=== PATIENT | male | born 1950 | race Two or more races ===

== ENCOUNTER 2019-06-11 23:11 | Inpatient (IN) | payer MEDICAID, OTHER ==
[~2019-06-11] VITALS: Ht 177.8 cm; Wt 69.4 kg
--- NOTE | 2019-06-11 23:20 | NUR ---
PT [id number] FROM [facility] FOR G-TUBE REPLACEMENT, PER EMS G-TUBE WAS PULLED OUT THIS MORNING. PT VENT/TRACH SETTING SIMV/CPAP RATE 10, TIDAL VOLUME 600. PT AXO1. PT PUT ON THE CAR PARKER AND PULSE OX.
--- NOTE | 2019-06-11 23:35 | NUR ---
ER AT BEDSIDE, UNABLE TO REPLACE G-TUBE.
--- NOTE | 2019-06-11 23:39 | NUR ---
PT REC'D TRACHED ON [facility] VENT ON NOTED SETTINGS GIVEN FROM TRANSPORT RT. NO RESP DISTRESS OR SOB NOTED. TRACH IS PATENT AND SECURED. SX'D FOR THICK MOD AMT OF PALE YELLOW SECRETIONS. ALARMS ARE SET AND AUDIBLE. VENT PLUGGED INTO RED OUTLET. AMBU BAG BEDSIDE. WILL CONTINUE TO MONITOR. Addendum: 06/11/19 at 2342 by DWAYNE CAMPOS RT Amended: Links added.
--- NOTE | 2019-06-11 23:45 | NUR ---
SUPERVISOR TELEPHONE INFORMATION AT BEDSIDE. LABS DRAWN THROUGH 18G RAC. SENT TO LAB.
[2019-06-11 23:49] LABS: BASOPHILS % (AUTO) 0.3 % (0.0-2.0); EOSINOPHILS % (AUTO) 1.8 % (0.0-6.0); HEMATOCRIT 25 % (39-51); HEMOGLOBIN 8.3 g/dL (13.5-17.5); LYMPHOCYTES # (AUTO) 1.3 /CMM (0.8-4.8); LYMPHOCYTES % (AUTO) 25.3 % (20.0-44.0); MEAN CORPUSCULAR HGB CONC 34 g/dl (31.0-36.0); MEAN CORPUSCULAR VOLUME 92 fL (80-96); MONOCYTES # (AUTO) 0.7 /CMM (0.1-1.30); MONOCYTES % (AUTO) 12.4 % (2.0-12.0); NEUTROPHILS # (AUTO) 3.2 /CMM (1.8-8.9); NEUTROPHILS % (AUTO) 60.2 % (43.0-81.0); PLATELET COUNT (AUTO) 167 /CMM (150-450); RED BLOOD CELL COUNT(AUTO) 2.69 MIL/uL (4.5-6.0); WHITE BLOOD COUNT (AUTO) 5.3 K/uL (4.3-11.0)
--- NOTE | 2019-06-11 23:55 | NUR ---
XRAY AT BEDSIDE.
[2019-06-11 23:59] LABS: CALCIUM, SERUM 9.5 mg/dL (8.5-10.1); CREATININE 0.5 mg/dL (0.6-1.3); POTASSIUM 3.2 mmol/L (3.5-5.1)
[2019-06-12 00:05] LABS: ALBUMIN 2.2 g/dL (3.4-5.0); BILIRUBIN,DIRECT 0.2 mg/dL (0.0-0.2); BILIRUBIN,TOTAL 0.5 mg/dL (0.2-1.0); TOTAL PROTEIN, SERUM 8.4 g/dL (6.4-8.2)
[2019-06-12] MEDS ORDERED: IV PREMIX D5 1/2NS + KCL 1,000 ML IV ONE ×2 (00:09→00:21)
[2019-06-12 01:00] LABS: OCCULT BLOOD STOOL NEGATIVE (NEGATIVE)
--- NOTE | 2019-06-12 02:18 | NUR ---
REPORT GIVEN TO EMILY VIDALES FOR SHARDA.
[2019-06-12] MEDS ORDERED: Z GUARD REMEDY 2 OZ OINT TP PRN (02:30)
[2019-06-12] MEDS ORDERED: ONDANSETRON HCL/PF 4 MG/2 ML VIAL IVP PRN (02:30)
[2019-06-12] MEDS ORDERED: ACETAMINOPHEN 650 MG/SUPP.RECT RC PRN (02:30)
--- NOTE | 2019-06-12 02:35 | NUR ---
TECHNICAL MARKETING ENGINEER NOTE PT ARRIVED TO UNIT VIA GURNEY ACCOMPANIED BY ER STAFF AND RT. PT IN STABLE CONDITION. SPONTANEOUSLY OPENS EYES. CURRENTLY ON VENT, TOLERATING SETTINGS WELL. SKIN ASSESSED, WITH PHOTOS TAKEN IN CHART. NO BELONGINGS NOTED. IV IN R AC, IN PLACE WITH IVF INFUSING. ALL CURRENT NEEDS ATTENDED TO. BED LOW, LOCKED, UPPER RAILS UP, AND CALL LIGHT WITHIN REACH. NEW ORDERS RECEIVED FROM LADARIUS MARINO. WILL CONT. TO MONITOR.
[2019-06-12 02:45] VITALS: BP 134/82
[2019-06-12 04:00] VITALS: BP 130/81
[2019-06-12] MEDS ORDERED: ALBU2.5V38 NEB (04:01)
[2019-06-12] MEDS ORDERED: THIA500T GT (04:01)
[2019-06-12] MEDS ORDERED: MAGN400O6 GT (04:01)
[2019-06-12] MEDS ORDERED: MULT9LIQ GT (04:01)
[2019-06-12] MEDS ORDERED: ZINC220T GT (04:01)
[2019-06-12] MEDS ORDERED: VALP250S4 GT (04:01)
[2019-06-12] MEDS ORDERED: FOLI1TAB16 GT (04:01)
[2019-06-12] MEDS ORDERED: IPRA0.2S9 HHN (04:01)
[2019-06-12] MEDS ORDERED: VIT500LI GT (04:01)
[2019-06-12] MEDS ORDERED: BISA10SU61 RC (04:01)
[2019-06-12] MEDS ORDERED: LOSA50TA39 GT (04:01)
[2019-06-12] MEDS ORDERED: TRAM50TA2 GT (04:01)
[2019-06-12] MEDS ORDERED: METO25TA6 GT (04:01)
[2019-06-12] MEDS ORDERED: LACT10SO GT (04:01)
[2019-06-12] MEDS ORDERED: FAMO20TA8 GT (04:01)
[2019-06-12] MEDS ORDERED: CLON0.1T GT (04:01)
[2019-06-12] MEDS ORDERED: DOCU50LI GT (04:01)
[2019-06-12] MEDS: IV D5/0.45 NACL 1,000 ML IV PRN (04:07)
[2019-06-12] MEDS ORDERED: ALBU2.5V13 NEB (04:12)
--- NOTE | 2019-06-12 06:36 | NUR ---
POTATO CHIP PACKAGING MACHINE OPERATOR NOTE PT IN STABLE CONDITION. SPONTANEOUSLY OPENS EYES. CURRENTLY ON VENT, TOLERATING SETTINGS WELL. IV IN R AC, IN PLACE WITH IVF INFUSING. ALL CURRENT NEEDS ATTENDED TO. BED LOW, LOCKED, UPPER RAILS UP, PT REPOSITIONED PER UNIT PROTOCOL, SUCTIONED NEEDED, AND CALL LIGHT WITHIN REACH WILL CONT TO MONITOR AND ENDORSE TO NEXT SHIFT FOR SHARDA.
[2019-06-12 06:46] LABS: CALCIUM, SERUM 9.5 mg/dL (8.5-10.1); CREATININE 0.4 mg/dL (0.6-1.3); MAGNESIUM 1.4 mg/dL (1.8-2.4); PHOSPHORUS 4.6 mg/dL (2.5-4.9)
[2019-06-12 06:54] LABS: BASOPHILS % (AUTO) 0.6 % (0.0-2.0); EOSINOPHILS % (AUTO) 1.1 % (0.0-6.0); HEMATOCRIT 24 % (39-51); HEMOGLOBIN 7.9 g/dL (13.5-17.5); LYMPHOCYTES % (AUTO) 22.5 % (20.0-44.0); MEAN CORPUSCULAR HGB CONC 33 g/dl (31.0-36.0); MEAN CORPUSCULAR VOLUME 92 fL (80-96); MONOCYTES # (AUTO) 0.6 /CMM (0.1-1.30); MONOCYTES % (AUTO) 13.2 % (2.0-12.0); NEUTROPHILS # (AUTO) 2.7 /CMM (1.8-8.9); NEUTROPHILS % (AUTO) 62.6 % (43.0-81.0); PLATELET COUNT (AUTO) 160 /CMM (150-450); RED BLOOD CELL COUNT(AUTO) 2.58 MIL/uL (4.5-6.0); WHITE BLOOD COUNT (AUTO) 4.3 K/uL (4.3-11.0)
--- NOTE | 2019-06-12 07:30 | NUR ---
METAL CABINET FINISHER NOTE RECEIVED PT IN BED. A/O X1. PATIENT ON A VENTILATOR PULSE OX READING 95% . EXTERNAL TELE MONITOR READING SINUS TACH 106 . NO DISTRESS AT THIS TIME. IV ACCESS RIGHT AC GAUGE 18 RUNNING D5 1/2 NS @75 ML/HR. BED IS LOW AND LOCKED. CALL LIGHT WITHIN REACH. G-TUBE SITE COVERED WITH DRY DRESSING AND NO DRAINAGE AND NO APPARENT SIGNS AND SYMPTOMS OF INFECTION. WILL CONTINUE TO MONITOR.
[2019-06-12 08:00] VITALS: BP 129/74
[2019-06-12] MEDS ORDERED: POTASSIUM CHLORIDE 20 MEQ TAB.PRT.SR PO SCH (10:00)
--- NOTE | 2019-06-12 10:08 | NUR ---
RT NOTE RECEIVED PT MECHANICALLY VENTILATED VIA CUFFED TRACHEOSTOMY TUBE. CUFF INFLATED. TRACH TUBE MIDLINE AND SECURE. VENTILATOR SETTINGS PRESCRIBED. ALARMS SET PER PROTOCOL AND AUDIBLE. VENT PLUGGED IN TO RED OUTLET. AMBU BAG AT BED SIDE. NO DISTRESS NOTED. Addendum: 06/12/19 at 1008 by JW BAUM RT Amended: Links added.
[2019-06-12] MEDS: Magnesium 1GM/D5W 100ML PREMIX 100 ML IV SCH ×4 (10:25→16:11)
[2019-06-12] MEDS ORDERED: CLONIDINE HCL 0.1 MG TABLET GT PRN (10:30)
[2019-06-12] MEDS ORDERED: BISACODYL SUPP (10 MG) 10 MG/SUPP.RECT SUPP.RECT RC SCH (10:30)
[2019-06-12] MEDS ORDERED: ALBUTEROL FS 2.5 MG/0.5 ML VIAL.NEB NEB PRN (10:30)
[2019-06-12] MEDS: THIAMINE HCL 100 MG TABLET PO SCH (11:00)
[2019-06-12] MEDS: POTASSIUM CL. PREMIX PERIPHER. 50 ML IV SCH ×6 (11:50→22:09)
[2019-06-12 12:00] VITALS: BP 109/67
[2019-06-12] MEDS ORDERED: VALPROIC ACID 250 MG/5 ML UDC GT SCH (13:00)
[2019-06-12] MEDS: IPRATROPIUM NEB FS 0.5 MG/2.5 ML AMPUL.NEB HHN SCH ×2 (13:36→20:35)
[2019-06-12] MEDS: ALBUTEROL FS 2.5 MG/0.5 ML VIAL.NEB NEB SCH ×2 (13:36→20:35)
[2019-06-12 16:00] VITALS: BP 94/56
--- NOTE | 2019-06-12 16:30 | NUR ---
TELE/RN NOTE COOLING MEASURES DONE AND TEMP DROPPED FROM 99.9F TO 98.2.
[2019-06-12] MEDS: LACTULOSE 10 G/15 ML UDC (PYXIS) GT SCH (17:00)
--- NOTE | 2019-06-12 17:31 | NUR ---
PUBLIC HEALTH TECHNICIAN NOTE CAN NOT ADMINISTER G-TUBE MEDICATIONS DUE TO NO G-TUBE PLACEMENT.
--- NOTE | 2019-06-12 18:47 | NUR ---
PROFESSIONAL HOUSING CONSULTANT CLOSING NOTE PATIENT IN BED. A/O X1. PATIENT ON VENTILATOR, PULSE OX READING 96%. NO MANIFESTATIONS OF PAIN DURING SHIFT. NO APPARENT DISTRESS AT THIS TIME. IV ACCESS RIGHT AC GAUGE 18 RUNNING POTASSIUM TO CORRECT POTASSIUM LEVEL OF 3.0. BED IS LOW AND LOCKED. FAMILY AT THE BEDSIDE. CALL LIGHT WITHIN REACH. G-TUBE NO SIGNS OF INFECTION OF DRAINAGE. WILL ENDORSE TO ELIGIBILITY CLERK. Addendum: 06/12/19 at 1857 by CARMELA GRAJEDA RN EXTERNAL TELE MONITOR READS ST 102
--- NOTE | 2019-06-12 19:03 | NUR ---
SENIOR INFORMATICA ETL DEVELOPER NOTE 3 BAGS OF POTASSIUM, TOTALLING 30 MEQ WILL BE ENDORSED TO SPRIGGER.
--- NOTE | 2019-06-12 19:29 | NUR ---
OCCUPATIONAL THERAPY SUPERVISOR OPENING NOTES: RECEIVED PT ON [facility] VENT WITH SETTINGS TV 600, SIMV 10, FI02 10% AND IS ON TELE BOX AND READING SHOWS ST 100S. DTR AND AT BEDSIDE. PT LOOKS COMFORTABLE AT THIS TIME AND IS CONNECTED TO CONT PULSE OX SATURATING OK. PT NPO AT THIS TIME. PT HAS IV ON R AC #18G AND IS BEING INFUSED THIRD BAG OF POTASSIUM CL AT 50ML/HR. BED KEPT IN LOW, LOCKED POSITION, AND SIDE RAILS X 2UP. WILL CONTINUE TO MONITOR PT. Addendum: 06/12/19 at 2038 by SERGO SIMS RN PEEP 5; PORTEX #8
--- NOTE | 2019-06-12 19:38 | NUR ---
SENIOR CREDIT ANALYST NOTES: PT SR 91 ON TELE MONITOR.
--- NOTE | 2019-06-12 19:46 | NUR ---
HAND BANDER NOTES: SPOKE WITH DR. MARINO. INFORMED HIM THAT PT HAS A MALFUNCTIONING G TUBE. PT ON DEPAKENE 50M0MG GT; PER DR. MARINO, HAVE PHARMACY CONVERT DEPAKENE TO EQUIVALENT FOR IV. SPOKE WITH PHARMACIST PADMINI. HE WILL CONVERT.
[2019-06-12 20:00] VITALS: BP 101/51
[2019-06-12] MEDS: METOPROLOL TARTRATE 25 MG TABLET GT SCH (20:40)
[2019-06-12] MEDS: TRAMADOL HCL 50 MG TABLET GT SCH (20:40)
--- NOTE | 2019-06-12 20:40 | NUR ---
TRADER FIXED INCOME NOTES: TRAMADOL 50MG WAS NON ADMIN. PT DOES NOT HAVE A FUNCTIONING G TUBE AT THIS TIME. WILL CONTINUE TO MONITOR.
[2019-06-12] MEDS: VALPROATE 500 MG in IV D5W 100 ML IV SCH (21:11)
[2019-06-13] VITALS: BP 110/69
[2019-06-13] MEDS: ALBUTEROL FS 2.5 MG/0.5 ML VIAL.NEB NEB SCH ×4 (00:46→19:44)
[2019-06-13] MEDS: IPRATROPIUM NEB FS 0.5 MG/2.5 ML AMPUL.NEB HHN SCH ×4 (00:46→19:44)
[2019-06-13] MEDS: IV D5/0.45 NACL 1,000 ML IV PRN (02:55)
[2019-06-13 04:00] VITALS: BP 129/77
[2019-06-13] MEDS: VALPROATE 500 MG in IV D5W 100 ML IV SCH ×3 (04:01→20:55)
--- NOTE | 2019-06-13 06:06 | NUR ---
DISPOSAL OPERATOR CLOSING NOTES: ALL NEEDS WERE ATTENDED AND ANTICIPATED FOR. PT KEPT CLEAN, DRY, AND COMFORTABLE. PT SUCTIONED PRN. PT TURNED AND REPOSITIONED Q 2HRS. PT REMAINS ON PORTEX #8 TRACH WITH MECH VENT SETTINGS TV 600, SIMV 10, FI02 40%, AND PEED 5. PT ON TELE MONITOR AND READING SHOWS SR 76. PT REMAINS NPO PT MAY POSSIBLY GO FOR EGD/PEG PLACEMENT TODAY. CONSENTS ARE IN CHART. PT HAS IV ON R AC #18G AND IS BEING INFUSED WITH IV D5 1/2 NS AT 75ML/HR. BED KEPT IN LOW, LOCKED POSITION, AND SIDE RAILS X 2UP. WILL ENDORSE TO AM NURSE FOR SHARDA.
[2019-06-13 07:24] LABS: BASOPHILS % (AUTO) 0.4 % (0.0-2.0); EOSINOPHILS % (AUTO) 3.1 % (0.0-6.0); HEMATOCRIT 22 % (39-51); HEMOGLOBIN 7.3 g/dL (13.5-17.5); LYMPHOCYTES # (AUTO) 1.1 /CMM (0.8-4.8); LYMPHOCYTES % (AUTO) 28.3 % (20.0-44.0); MEAN CORPUSCULAR HGB CONC 33 g/dl (31.0-36.0); MEAN CORPUSCULAR VOLUME 92 fL (80-96); MONOCYTES # (AUTO) 0.5 /CMM (0.1-1.30); MONOCYTES % (AUTO) 11.3 % (2.0-12.0); NEUTROPHILS # (AUTO) 2.3 /CMM (1.8-8.9); NEUTROPHILS % (AUTO) 56.9 % (43.0-81.0); PLATELET COUNT (AUTO) 150 /CMM (150-450); RED BLOOD CELL COUNT(AUTO) 2.38 MIL/uL (4.5-6.0); WHITE BLOOD COUNT (AUTO) 4.1 K/uL (4.3-11.0)
--- NOTE | 2019-06-13 07:43 | NUR ---
BEND SORTER NOTES PATIENT RECEIVED RESTING INSIDE ROOM. SLEEPING, AROUSABLE TROUGH STIMULI, OPENS EYES. CONNECTED TO VENT AND TOLERATING SETTINGS. NO ACUTE DISTRESS NOTED AT THIS TIME. CONTINUE WITH TELEMETRY, SOCIOLOGY ADJUNCT INSTRUCTOR IN PLACE. SR 77. IV INTACT AND PATENT. IVF INFUSING WELL. SAFETY PRECAUTIONS IN PLACE. MAINTAINED ASPIRATION PRECAUTION. WILL CONTINUE TO MONITOR. BED LOCKED AND IN LOW POSITION. BILATERAL UPPER SIDE RAILS UP AND LOCKED. CALL LIGHT WITHIN EASY REACH
[2019-06-13 07:48] LABS: ALBUMIN 1.8 g/dL (3.4-5.0); BILIRUBIN,TOTAL 0.5 mg/dL (0.2-1.0); CALCIUM, SERUM 9.6 mg/dL (8.5-10.1); CREATININE 0.4 mg/dL (0.6-1.3); MAGNESIUM 1.6 mg/dL (1.8-2.4); PHOSPHORUS 5.2 mg/dL (2.5-4.9); POTASSIUM 3.3 mmol/L (3.5-5.1); TOTAL PROTEIN, SERUM 7.4 g/dL (6.4-8.2)
[2019-06-13 08:00] VITALS: BP 109/69
[2019-06-13] MEDS: DOCUSATE SODIUM LIQ 100 MG/10 ML UDC GT SCH (09:00)
[2019-06-13] MEDS: FOLIC ACID 1 MG TABLET GT SCH (09:00)
[2019-06-13] MEDS: THIAMINE HCL 100 MG TABLET PO SCH (09:00)
[2019-06-13] MEDS: TRAMADOL HCL 50 MG TABLET GT SCH ×2 (09:00→20:56)
[2019-06-13] MEDS: LOSARTAN POTASSIUM 50 MG TABLET GT SCH (09:00)
[2019-06-13] MEDS: MULTIVIT W/MINERALS 1 TAB TABLET GT SCH (09:00)
[2019-06-13] MEDS: ASCORBIC ACID 500 MG TABLET PO SCH (09:00)
[2019-06-13] MEDS: ZINC SULFATE 220 MG CAPSULE GT SCH (09:00)
[2019-06-13] MEDS: LACTULOSE 10 G/15 ML UDC (PYXIS) GT SCH ×2 (09:00→16:29)
[2019-06-13] MEDS: METOPROLOL TARTRATE 25 MG TABLET GT SCH ×2 (09:00→20:55)
[2019-06-13] MEDS: FAMOTIDINE (20 MG) 20 MG TABLET GT SCH (09:00)
--- NOTE | 2019-06-13 09:02 | NUR ---
COMMISSARY MANAGER NOTES PATIENT NPO, NO GT AT THIS TIME. AWAITING EGD. UNABLE TO ADMINISTER GT MEDICATIONS. MD AWARE. PATIENT CALM AND RELAXED. NO ACUTE DISTRESS. RESTING COMFORTABLY. WILL CONTINUE TO MONITOR
[2019-06-13] MEDS: POTASSIUM CL. PREMIX PERIPHER. 50 ML IV SCH ×2 (11:41→13:06)
[2019-06-13] MEDS: Magnesium 1GM/D5W 100ML PREMIX 100 ML IV SCH ×2 (11:41→13:06)
[2019-06-13 12:00] VITALS: BP 110/64
[2019-06-13 16:00] VITALS: BP 103/67
[2019-06-13 18:29] LABS: HEMOGLOBIN 7.6 g/dL (13.5-17.5)
--- NOTE | 2019-06-13 18:29 | NUR ---
AIR HOSE COUPLER NOTES PATIENT WITH ORDER FROM HAILE YOUNG NP FOR NGT INSERTION. PLACED CALL TO DR ELIAS AND MADE AWARE AND SAID IT IS OK TO PROCEED WITH PROCEDURE. DAUGHTER AMBER AT BEDSIDE AND MADE AWARE OF ORDER. DAUGHTER AMBER VERBALIZED SHE WANTS TO THINK ABOUT IT BEFORE LETTING STAFF PLACE NGT ON THE PATIENT. WILL CONTINUE TO MONITOR
--- NOTE | 2019-06-13 18:31 | NUR ---
SUPERVISOR FLESHING NOTES PATIENT RESTING INSIDE ROOM. SLEEPING. NO ACUTE DISTRESS. CONNECTED TO VENT TOLERATING CURRENT SETTINGS. NO ACUTE DISTRESS. PATIENT SUCTIONED NEEDED. MAINTAINED ASPIRATION PRECAUTIONS. IV INTACT AND PATENT. IVF INFUSING WELL. DAUGHTER AT BEDSIDE. AWAITING DAUGHTER DECISION REGARDING NGT INSERTION. CONTINUE WITH TELEMETRY, SHEETMETAL PATTERNMAKER IN PLACE. SR 81. WILL ENDORSE TO INCOMING SHIFT FOR SHARDA. BED LOCKED AND IN LOW POSITION. BILATERAL UPPER SIDE RAILS UP AND LOCKED. CALL LIGHT WITHIN EASY REACH
--- NOTE | 2019-06-13 19:00 | NUR ---
FERN GATHERER NOTES DAUGHTER ABMER GAVE OK FOR NGT INSERTION. NGT Fr 18 INSERTED ON LEFT NOSTRIL UP TO 55 KRISS. NO BLEEDING NOTED. WILL CONTINUE TO MONITOR
--- NOTE | 2019-06-13 19:30 | NUR ---
WIG COMBER NOTE: PATIENT RESTING IN BED, NO ACUTE DISTRESS NOTED, FAMILY AT BEDSIDE. BREATHING EVEN AND UNLABORED, NO SOB NOTED. VENT SETTINGS IN PLACE. PATIENT WITH NG TUBE TO LEFT NOSTRIL, TO BE REMOVED IF PATIENT SCHEDULED FOR SURGERY TOMORROW, AWAKING FOR SURGERY SCHEDULE. CONSENTS SIGNED AND IN CHART. BED LOCKED AND IN LOWEST POSITION, CALL LIGHT IN REACH. WILL CONTINUE TO MONITOR.
[2019-06-13 20:00] VITALS: BP 112/70
--- NOTE | 2019-06-13 22:30 | NUR ---
LACTATION COORDINATOR NOTE: RECEIVED SURGERY SCHEDULE LIST, PATIENT SCHEDULED FOR EGD/PEG PLACEMENT TOMORROW AT 1325, HAILE, MARKETING COMMUNICATIONS LEADER ON FLOOR AND OK TO REMOVE NG TUBE SINCE PATIENT WILL HAVE SURGERY TOMORROW. NG TUBE REMOVED WITHOUT COMPLICATIONS/BLEEDING NOTED. WILL CONTINUE TO MONITOR.
[2019-06-14] VITALS: BP 115/64
[2019-06-14] MEDS: IPRATROPIUM NEB FS 0.5 MG/2.5 ML AMPUL.NEB HHN SCH ×4 (01:20→19:51)
[2019-06-14] MEDS: ALBUTEROL FS 2.5 MG/0.5 ML VIAL.NEB NEB SCH ×4 (01:20→19:52)
[2019-06-14 04:00] VITALS: BP 131/79
[2019-06-14] MEDS: VALPROATE 500 MG in IV D5W 100 ML IV SCH ×3 (04:31→21:19)
[2019-06-14] MEDS: IV D5/0.45 NACL 1,000 ML IV PRN ×2 (04:31→20:01)
--- NOTE | 2019-06-14 06:10 | NUR ---
JAVA DEVELOPMENT TEAM LEAD NOTE: PATIENT RESTING IN BED, NO ACUTE DISTRESS NOTED. BREATHING EVEN AND UNLABORED, NO SOB NOTED. VENT SETTINGS IN PLACE. PATIENT FOR EGD AND PEG PLACEMENT. CONSENTS SIGNED AND CHECKLIST COMPLETE AND IN CHART. BED LOCKED AND IN LOWEST POSITION, CALL LIGHT IN REACH. WILL ENDORSE TODAY NURSE TO CONTINUE WITH PLAN OF CARE.
[2019-06-14 06:48] LABS: BASOPHILS % (AUTO) 0.6 % (0.0-2.0); EOSINOPHILS % (AUTO) 3.1 % (0.0-6.0); HEMATOCRIT 24 % (39-51); HEMOGLOBIN 8.2 g/dL (13.5-17.5); LYMPHOCYTES # (AUTO) 1.1 /CMM (0.8-4.8); LYMPHOCYTES % (AUTO) 34.3 % (20.0-44.0); MEAN CORPUSCULAR HGB CONC 34 g/dl (31.0-36.0); MEAN CORPUSCULAR VOLUME 92 fL (80-96); MONOCYTES # (AUTO) 0.3 /CMM (0.1-1.30); NEUTROPHILS # (AUTO) 1.7 /CMM (1.8-8.9); PLATELET COUNT (AUTO) 163 /CMM (150-450); RED BLOOD CELL COUNT(AUTO) 2.65 MIL/uL (4.5-6.0); WHITE BLOOD COUNT (AUTO) 3.3 K/uL (4.3-11.0)
[2019-06-14 07:02] LABS: CALCIUM, SERUM 9.6 mg/dL (8.5-10.1); CREATININE 0.5 mg/dL (0.6-1.3); POTASSIUM 3.6 mmol/L (3.5-5.1)
--- NOTE | 2019-06-14 07:50 | NUR ---
MS RN RECEIVED ON BED, AWAKE, NONVERBAL,W/ TRACH AND ON VENT,NO S/S OF PAIN, PATIENT CAME W/ MALFUNCTION OG G TUBE,PATIENT WILL HAVE A EGD W/ PEG PLACEMENT TODAY.
[2019-06-14 08:00] VITALS: BP 131/72
[2019-06-14] MEDS: LACTULOSE 10 G/15 ML UDC (PYXIS) GT SCH ×2 (09:00→18:24)
[2019-06-14] MEDS: FOLIC ACID 1 MG TABLET GT SCH (09:00)
[2019-06-14] MEDS: DOCUSATE SODIUM LIQ 100 MG/10 ML UDC GT SCH (09:00)
--- NOTE | 2019-06-14 09:00 | NUR ---
MS VIDALES NPO AT THIS TIME FOR THE PROCEDURE.
--- NOTE | 2019-06-14 10:37 | NUR ---
WOUND CARE CONSULT: PT PRESENTS WITH IMMOBILITY AND INCONTINENCE, SACRAL WOUND, PREVIOUS G TUBE SITE WITH DRY DRESSING, BILATERAL EAR SCARS, PRESENT ON ADMISSION. PLASTIC SURGERY TEAM TO FOLLOW PT FOR WOUND TREATMENT PLAN. DR MORTENSEN AWARE OF SURGICAL CONSULT. RECOMMENDATIONS MADE FOR SKIN PROTECTION AND DISCUSSED WITH NURSING STAFF. FIRST STEP LOW AIRLOSS MATTRESS ON ORDER. WILL SEE PRN. Addendum: 06/14/19 at 1039 by SARATH WALL WNDNU Amended: Links added.
[2019-06-14 11:30] VITALS: BP 114/68
--- NOTE | 2019-06-14 12:45 | NUR ---
MS VIDALES G TUBE PLACEMENT DONE BY DR. PEREIRA W/ ORDERS MADE AND CARRIED OUT.
[2019-06-14 15:30] VITALS: BP 131/73
[2019-06-14] MEDS ORDERED: JEVITY 1.2 CAL 1,000 ML BOTTLE GT PRN ×2 (18:00→18:06)
--- NOTE | 2019-06-14 18:00 | NUR ---
MS RN STARTED GT FEEDING,TOLERATED W/O RESIDUAL, DUE MEDS GIVEN,TOLERATE WELL.
[2019-06-14] MEDS: THIAMINE HCL 100 MG TABLET PO SCH (18:20)
[2019-06-14] MEDS: ZINC SULFATE 220 MG CAPSULE GT SCH (18:20)
[2019-06-14] MEDS: ASCORBIC ACID 500 MG TABLET PO SCH (18:20)
[2019-06-14] MEDS: TRAMADOL HCL 50 MG TABLET GT SCH ×2 (18:20→21:19)
[2019-06-14] MEDS: MULTIVIT W/MINERALS 1 TAB TABLET GT SCH (18:20)
[2019-06-14] MEDS: LOSARTAN POTASSIUM 50 MG TABLET GT SCH (18:21)
[2019-06-14] MEDS: METOPROLOL TARTRATE 25 MG TABLET GT SCH ×2 (18:21→21:19)
[2019-06-14] MEDS: FAMOTIDINE (20 MG) 20 MG TABLET GT SCH (18:24)
[2019-06-14 19:51] VITALS: BP 129/71
[2019-06-15] VITALS: BP 133/77
[2019-06-15] MEDS: IPRATROPIUM NEB FS 0.5 MG/2.5 ML AMPUL.NEB HHN SCH ×3 (01:20→13:30)
[2019-06-15] MEDS: ALBUTEROL FS 2.5 MG/0.5 ML VIAL.NEB NEB SCH ×3 (01:20→13:30)
[2019-06-15 04:00] VITALS: BP 140/81
[2019-06-15] MEDS: VALPROATE 500 MG in IV D5W 100 ML IV SCH ×2 (05:26→12:25)
--- NOTE | 2019-06-15 06:18 | NUR ---
SAFETY PERSON NOTES PT OBTUNDED. WITH SAME VENT SETTINGS. NOT IN ANY DISTRESS. NO SOB NOTED. NO S/SX OF ANY PAIN OR DISCOMFORT AT THIS TIME. ON TELE SR @ 96 WITH IVF & GTF INFUSING WELL. AM CARE DONE. MONITORED ACCORDINGLY. CALL LIGHT WITHIN REACH. BED IN LOWEST POSITION. SR UP X 3 WITH BED ALARM ON FOR SAFETY. WILL ENDORSE TO NEXT SHIFT.
--- NOTE | 2019-06-15 07:50 | NUR ---
MS RN RECEIVED ON BED,SLEEPING,NOT IN ANY FORM OF DISTRESS, RESPIRATIONS EVEN AND UNLABORED NOT IN DISTRESS. TRACT CONNECTED TO VENT, NONE VERBAL PATIENT, VENT DEPENDENT, G TUBE FEEDING AT 40ML/HOUR TOLERATED WELL W/ NO RESIDUAL,ALL NEEDS ATTENDED.
[2019-06-15 08:00] VITALS: BP 136/84
[2019-06-15] MEDS: THIAMINE HCL 100 MG TABLET PO SCH (09:27)
[2019-06-15] MEDS: FAMOTIDINE (20 MG) 20 MG TABLET GT SCH (09:27)
[2019-06-15] MEDS: MULTIVIT W/MINERALS 1 TAB TABLET GT SCH (09:27)
[2019-06-15] MEDS: ASCORBIC ACID 500 MG TABLET PO SCH (09:27)
[2019-06-15] MEDS: ZINC SULFATE 220 MG CAPSULE GT SCH (09:27)
[2019-06-15] MEDS: FOLIC ACID 1 MG TABLET GT SCH (09:28)
[2019-06-15] MEDS: TRAMADOL HCL 50 MG TABLET GT SCH (09:28)
[2019-06-15] MEDS: DOCUSATE SODIUM LIQ 100 MG/10 ML UDC GT SCH (09:28)
[2019-06-15] MEDS: LACTULOSE 10 G/15 ML UDC (PYXIS) GT SCH (09:28)
[2019-06-15 09:29] VITALS: BP 136/84
[2019-06-15] MEDS: LOSARTAN POTASSIUM 50 MG TABLET GT SCH (09:29)
[2019-06-15] MEDS: METOPROLOL TARTRATE 25 MG TABLET GT SCH (09:29)
--- NOTE | 2019-06-15 09:30 | NUR ---
MS SOBEIDA DUE MEDS GIVEN VIA G TUBE,TOLERATED WELL.
[2019-06-15] MEDS ORDERED: LACT-209 GT (10:28)
--- NOTE | 2019-06-15 13:30 | NUR ---
MS RN PATIENT WENT TO SNF ACCOMPANIED BY AMBULANCE STAFF, REPORT WAS GIVEN TO EVARISTO VIDALES.
[2019-06-15] MEDS ORDERED: SOD FERRIC GLUC 125 MG in IV NS 0.9% 100 ML IV SCH (14:00)
== END 2019-06-15 13:45 | DRG 252 ==
LOC: ER 23:13 → TELE 06-12 01:36
PROVIDERS: ADMIT Nurse Practitioner Acute Care; ATTEND Nurse Practitioner Acute Care
PROC: 5A1945Z Respiratory Ventilation, 24-96 Consecutive Hours (ICD-10-PCS; principal; 2019-06-12)
PROC: 0DH63UZ Insertion of Feeding Device into Stomach, Percutaneous Approach (ICD-10-PCS; 2019-06-14)
DX: K94.23 Gastrostomy malfunction (principal); E43 Unspecified severe protein-calorie malnutrition; Z99.11 Dependence on respirator [ventilator] status; G93.49 Other encephalopathy; J96.10 Chronic respiratory failure, unspecified whether with hypoxia or hypercapnia; R13.10 Dysphagia, unspecified; T17.990A Other foreign object in respiratory tract, part unspecified in causing asphyxiation, initial encounter; F41.9 Anxiety disorder, unspecified; I10 Essential (primary) hypertension; K21.9 Gastro-esophageal reflux disease without esophagitis; Y83.3 Surgical operation with formation of external stoma as the cause of abnormal reaction of the patient, or of later complication, without mention of misadventure at the time of the procedure; Y82.9 Unspecified medical devices associated with adverse incidents; Y92.129 Unspecified place in nursing home as the place of occurrence of the external cause; J98.11 Atelectasis; X58.XXXA Exposure to other specified factors, initial encounter; Y92.10 Unspecified residential institution as the place of occurrence of the external cause; Z87.820 Personal history of traumatic brain injury; G40.909 Epilepsy, unspecified, not intractable, without status epilepticus; E87.6 Hypokalemia; E83.42 Hypomagnesemia; D50.9 Iron deficiency anemia, unspecified; R00.1 Bradycardia, unspecified; D63.8 Anemia in other chronic diseases classified elsewhere
CPT/HCPCS: 31720; 36415; 43246; 71045-TC; 80048-TC; 80053-TC; 80061-TC; 80076-TC; 82272-TC; 82728-TC; 83540-TC; 83735-TC; 84100-TC; 84484-TC; 85025-TC; 85027-TC; 85730-TC; 86850-TC; 87081-TC; 94003-TC; 94760-TC; 94762-TC; A4623; A6253; A7526; G0378; J0690; J2704; J2916; J3475; J3480; J3490; J7030; J7042; J7060

== ENCOUNTER 2021-02-17 15:32 | Emergency (ER) | payer MEDICAID, OTHER ==
[~2021-02-17] VITALS: Ht 170.2 cm; Wt 77.1 kg
[~2021-02-17 15:32] MED LIST: ALBU2.5V13 NEB; ALBU2.5V38 NEB; BISA10SU61 RC; CLON0.1T GT; DOCU50LI GT; FAMO20TA8 GT; FOLI1TAB16 GT; IPRA0.2S9 HHN; LACT-209 GT; LACT10SO3 GT; LOSA50TA39 GT; MAGN400O6 PO; METO25TA6 GT; MULT9LIQ GT; THIA500T GT; TRAM50TA2 GT; VALP250S4 GT; VIT500LI GT; ZINC220T4 GT
--- NOTE | 2021-02-17 15:50 | NUR ---
BIBPA FROM SNF TO ER BED 10. AAOX3. NOT IN RESP DISTRESS. BREATHING EVEN AND UNLABORED. AMBULATORY. SENT HERE FOR PSYCHIATRIC EVALUATION D/T PT IS AGGRESSIVE TOWARDS STAFF AT THE FACILITY. PER REPORT, PT CHIP A STAFF. NO MEDICAL COMPLAINTS, DENIES ANY PAIN. MD WAS AT THE BEDSIDE FOR EVAL. ORDERS RECEIVED.
[2021-02-17 16:49] LABS: BASOPHILS % (AUTO) 0.5 % (0.0-2.0); EOSINOPHILS % (AUTO) 1.4 % (0.0-6.0); HEMATOCRIT 36 % (39-51); HEMOGLOBIN 12.1 g/dL (13.5-17.5); LYMPHOCYTES # (AUTO) 1.8 /CMM (0.8-4.8); LYMPHOCYTES % (AUTO) 29.3 % (20.0-44.0); MEAN CORPUSCULAR HGB CONC 34 g/dl (31.0-36.0); MEAN CORPUSCULAR VOLUME 92 fL (80-96); MONOCYTES # (AUTO) 0.4 /CMM (0.1-1.30); MONOCYTES % (AUTO) 5.7 % (2.0-12.0); NEUTROPHILS % (AUTO) 63.1 % (43.0-81.0); PLATELET COUNT (AUTO) 160 /CMM (150-450); RED BLOOD CELL COUNT(AUTO) 3.94 MIL/uL (4.5-6.0); WHITE BLOOD COUNT (AUTO) 6.3 K/uL (4.3-11.0)
[2021-02-17 17:00] LABS: CARBON DIOXIDE 27 mmol/L (21-32); CHLORIDE 105 mmol/L (98-107); CREATININE 0.7 mg/dL (0.6-1.3); GLUCOSE 90 mg/dL (74-106); POTASSIUM 4.1 mmol/L (3.5-5.1); SODIUM SERUM 141 mmol/L (136-145); UREA NITROGEN, BLOOD 17 mg/dL (7-18)
[2021-02-17 17:08] LABS: ACETAMINOPHEN < 0 ug/ml (10-30); ALANINE AMINOTRANSFERASE 37 U/L (12-78); ALBUMIN 3.5 g/dL (3.4-5.0); ALCOHOL, BLOOD < 3 mg/dL (0-0); ALKALINE PHOSPHATASE 142 U/L (46-116); ASPARTATE AMINOTRANSFERASE 25 U/L (15-37); BILIRUBIN,DIRECT 0.1 mg/dL (0.0-0.2); BILIRUBIN,TOTAL 0.3 mg/dL (0.2-1.0); TOTAL PROTEIN, SERUM 7.5 g/dL (6.4-8.2)
[2021-02-17 17:11] LABS: BILIRUBIN,URINE Negative (NEGATIVE); COLOR,URINE YELLOW (YELLOW); LEUKOCYTE ESTERASE ,URINE Trace (NEGATIVE); NITRITE, URINE Negative (NEGATIVE); PROTEIN,URINE Negative (NEGATIVE); UGLUCOSE Negative (NEGATIVE)
--- NOTE | 2021-02-17 17:18 | NUR ---
LENO CENTENO CALLED FOR PSYCH EVAL
[2021-02-17 17:29] LABS: RBC,URINE 0-2 /HPF (0-2)
[2021-02-17 17:30] LABS: BACTERIA,URINE Many /HPF (None Seen); SQUAMOUS EPITHELIAL CELL,UR Few /HPF (None Seen)
[2021-02-17] MEDS ORDERED: QUETIAPINE FUMARATE 25 MG TABLET PO STA (20:01)
--- NOTE | 2021-02-17 20:01 | NUR ---
TARYN SPEAKING WITH PATIENT.
[2021-02-17] MEDS ORDERED: QUETIAPINE FUMARATE 25 MG TABLET ONE (20:15)
--- NOTE | 2021-02-17 20:15 | NUR ---
STOVE CLEANER LENO CENTENO AT BEDSIDE FOR EVALUATION
--- NOTE | 2021-02-17 20:19 | NUR ---
SANDWICH AND JUICE PROVIDED TO PATIENT
--- NOTE | 2021-02-17 20:30 | NUR ---
REC'D NEG COVID RESULTS. AWARE
--- NOTE | 2021-02-17 22:40 | NUR ---
PER TARYN BURR, CLINICAL INFORMATION FAXED TO [facility] AND [facility] INTAKE, PENDING ACCEPTANCE INFORMATION
--- NOTE | 2021-02-18 01:48 | NUR ---
PATIENT IS SLEEPING. EASILY AROUSABLE. BREATHING EVENLY AND UNLABORED ONROOM AIR. CONNECTED TO THE MONITOR. SIDE RAILS ARE UP FOR SAFETY. SITTER AT BEDSIDE.
--- NOTE | 2021-02-18 08:30 | NUR ---
PATIENT A/OX4, CAPE VERDEAN SPEAKER, ATE BREAKFAST AND TOLERATED WELL. AMBULATORY WITH STEADY GAIT. NO DISTRESS NOTED.
[2021-02-18] MEDS ORDERED: ACET-868 PO (08:31)
[2021-02-18] MEDS ORDERED: ALBU8.5H8 IH ×2 (08:31)
[2021-02-18] MEDS ORDERED: ACET-2605 PO (08:31)
[2021-02-18] MEDS ORDERED: CHLO473M5 MM (08:31)
[2021-02-18] MEDS ORDERED: OMEP20CA15 PO (08:31)
[2021-02-18] MEDS ORDERED: LEVE250T2 PO (08:31)
[2021-02-18] MEDS ORDERED: QUET25TA PO (08:31)
--- NOTE | 2021-02-18 09:10 | NUR ---
CALLED [facility] AND SPOKE TO SAMIRA. SAID THEY CANNOT ACCOMODATE PATIENT AT [facility] DUE TO PATIENT HAVING MEDI-MALENA.
--- NOTE | 2021-02-18 09:55 | NUR ---
RECIEVED A CALL FROM RIDDHI FROM [facility]. THEY ARE UNABLE TO ACCEPT DUE TO PATIENT HAVING G-TUBE. ACCORDING TO RIDDHI MEETS JOSE MIGUEL PSYCH REQUIREMENTS.
--- NOTE | 2021-02-18 10:49 | NUR ---
PATIENT HAS NO G-TUBE. DRESSING PLACED ON PREVIOUS GT SITE.
[2021-02-18] MEDS ORDERED: LEVETIRACETAM (250 MG) 250 MG TABLET PO ONE ×2 (11:07→17:04)
[2021-02-18] MEDS: LEVETIRACETAM (250 MG) 250 MG TABLET PO SCH ×2 (11:20→17:09)
--- NOTE | 2021-02-18 12:00 | NUR ---
PATIENT GIVEN LUNCH AND TOLERATED WELL. NO DIFFICULTY SWALLOWING.
--- NOTE | 2021-02-18 12:07 | NUR ---
SW called [facility] Intake: [phone] and left voicemail regarding placement fo this patient who is on a 5150 hold for [facility]. SW will be available as needed.
--- NOTE | 2021-02-18 14:33 | NUR ---
PER TARYN, SHE WILL COME LATER TONIGHT TO RE-ASSESS PATIENT. RECEIVED INFORMATION THAT [facility] IS WILLING TO ACCEPT THE PATIENT BACK.
[2021-02-18] MEDS ORDERED: QUETIAPINE FUMARATE 25 MG TABLET ONE (17:04)
[2021-02-18] MEDS ORDERED: QUETIAPINE FUMARATE 25 MG TABLET PO SCH (18:00)
--- NOTE | 2021-02-18 18:06 | NUR ---
PATIENT A/OX4, IN NO DISTRESS, GIVEN SCHEDULED MEDS. PROVIDED WITH DINNER AND TOLERATING WELL.
--- NOTE | 2021-02-18 22:17 | NUR ---
CALLED CALL THE CAR FOR BLS TO [facility]- ETA TO FOLLOW RES#[id number]
--- NOTE | 2021-02-18 22:43 | NUR ---
[facility] ETA 0000 HOURS
--- NOTE | 2021-02-18 23:57 | NUR ---
REPORT GIVEN TO TRANSPORT TEAM FOR SHARDA. AND TRANSFERRING RESPONSIBILITIES.
--- NOTE | 2021-02-19 00:09 | NUR ---
CALLED [facility]. PER MAKI AND DAVID VIDALES SUP. THEY DID NOT RECEIVE ANY INFORMATION RE: ADMISSION. ACCORDING TO REPORT PT [facility], UNABLE TO REACH AT THIS TIME
--- NOTE | 2021-02-19 00:11 | NUR ---
[facility] IN FACILITY, SENT TO WILL CALL PENDING [facility] ACCEPTANCE
--- NOTE | 2021-02-19 00:14 | NUR ---
SPOKE WITH VINITA. PLACED ON WILLCALL OF NOW.
--- NOTE | 2021-02-19 07:48 | NUR ---
CALLED [id number] [phone] RESERVATION# [phone]
--- NOTE | 2021-02-19 07:54 | NUR ---
[facility] WILL BE HERE AT [phone]
--- NOTE | 2021-02-19 09:04 | NUR ---
SLAVA HI CALLED [facility] AND VERIFIED PATIENT'S ACCEPTANCE AT THE FACILITY.
--- NOTE | 2021-02-19 09:45 | NUR ---
Patient discharged to snf in stable condition. Written and verbal after care instructions given. Patient verbalizes understanding of instruction. report and paperworls given to kidney puller. Report given to Yamileth moreau at [place]
[2021-02-19 10:14] VITALS: BP 154/82
== END 2021-02-19 10:19 ==
LOC: EDBD → ER 15:35
DX: F91.9 Conduct disorder, unspecified (principal); R45.851 Suicidal ideations; I10 Essential (primary) hypertension; K21.9 Gastro-esophageal reflux disease without esophagitis; G40.909 Epilepsy, unspecified, not intractable, without status epilepticus; S06.6X9S Traumatic subarachnoid hemorrhage with loss of consciousness of unspecified duration, sequela; X58.XXXS Exposure to other specified factors, sequela; Z79.899 Other long term (current) drug therapy; Z20.822 Contact with and (suspected) exposure to COVID-19
CPT/HCPCS: 36415; 80048; 80076; 80299; 80307; 80320; 81001; 85025; 87077; 87086; 87186; 87426; 99285; C9803; G0480

== ENCOUNTER 2021-02-27 12:11 | Emergency (ER) | payer OTHER ==
[~2021-02-27] VITALS: Ht 170.2 cm; Wt 77.1 kg
[~2021-02-27 12:11] MED LIST changes: +ACET-2605 PO; +ACET-868 PO; -ALBU2.5V13 NEB; -ALBU2.5V38 NEB; +ALBU8.5H8 IH; -BISA10SU61 RC; +CHLO473M5 MM; -CLON0.1T GT; -DOCU50LI GT; -FAMO20TA8 GT; -FOLI1TAB16 GT; -IPRA0.2S9 HHN; -LACT-209 GT; -LACT10SO3 GT; +LEVE250T2 PO; -LOSA50TA39 GT; -METO25TA6 GT; -MULT9LIQ GT; +OMEP20CA15 PO; +QUET25TA PO; -THIA500T GT; -TRAM50TA2 GT; -VALP250S4 GT; -VIT500LI GT; -ZINC220T4 GT
--- NOTE | 2021-02-27 12:30 | NUR ---
The patient is bibpa, from snf, for psych eval, aggressive towards staff. The patient is alert and oriented x2. Denies pain. In room air and denies sob. Respiration regulara and unlabored. The patient is in no apparent distress. Patient is provided with a warm blanket. Will continue to monitor the patient.
[2021-02-27 12:53] LABS: BASOPHILS % (AUTO) 0.7 % (0.0-2.0); EOSINOPHILS % (AUTO) 0.6 % (0.0-6.0); HEMATOCRIT 37 % (39-51); HEMOGLOBIN 12.5 g/dL (13.5-17.5); LYMPHOCYTES # (AUTO) 2.1 /CMM (0.8-4.8); LYMPHOCYTES % (AUTO) 33.3 % (20.0-44.0); MEAN CORPUSCULAR HGB CONC 34 g/dl (31.0-36.0); MEAN CORPUSCULAR VOLUME 90 fL (80-96); MONOCYTES # (AUTO) 0.3 /CMM (0.1-1.30); MONOCYTES % (AUTO) 5.5 % (2.0-12.0); NEUTROPHILS # (AUTO) 3.8 /CMM (1.8-8.9); NEUTROPHILS % (AUTO) 59.9 % (43.0-81.0); PLATELET COUNT (AUTO) 144 /CMM (150-450); RED BLOOD CELL COUNT(AUTO) 4.08 MIL/uL (4.5-6.0); WHITE BLOOD COUNT (AUTO) 6.3 K/uL (4.3-11.0)
[2021-02-27 13:04] LABS: CALCIUM, SERUM 8.9 mg/dL (8.5-10.1); CARBON DIOXIDE 27 mmol/L (21-32); CHLORIDE 103 mmol/L (98-107); CREATININE 0.6 mg/dL (0.6-1.3); GLUCOSE 90 mg/dL (74-106); POTASSIUM 4.5 mmol/L (3.5-5.1); SODIUM SERUM 139 mmol/L (136-145); UREA NITROGEN, BLOOD 13 mg/dL (7-18)
--- NOTE | 2021-02-27 13:08 | NUR ---
urine collected and sent to the lab
[2021-02-27 13:09] LABS: ALANINE AMINOTRANSFERASE 23 U/L (12-78); ALBUMIN 3.8 g/dL (3.4-5.0); ALCOHOL, BLOOD < 3 mg/dL (0-0); ALKALINE PHOSPHATASE 111 U/L (46-116); ASPARTATE AMINOTRANSFERASE 17 U/L (15-37); BILIRUBIN,DIRECT 0.1 mg/dL (0.0-0.2); BILIRUBIN,TOTAL 0.3 mg/dL (0.2-1.0); TOTAL PROTEIN, SERUM 7.5 g/dL (6.4-8.2)
[2021-02-27 13:10] LABS: ACETAMINOPHEN 0 ug/ml (10-30)
[2021-02-27 13:16] LABS: BILIRUBIN,URINE Negative (NEGATIVE); COLOR,URINE YELLOW (YELLOW); LEUKOCYTE ESTERASE ,URINE Small (NEGATIVE); NITRITE, URINE Positive (NEGATIVE); PROTEIN,URINE Negative (NEGATIVE); UGLUCOSE Negative (NEGATIVE); UROBILINOGEN,URINE 0.2 EU/dL (0.2)
[2021-02-27 13:19] LABS: BACTERIA,URINE Few /HPF (None Seen); RBC,URINE 0-2 /HPF (0-2); SQUAMOUS EPITHELIAL CELL,UR Rare /HPF (None Seen)
--- NOTE | 2021-02-27 13:50 | NUR ---
covid swab done and sent to the lab
[2021-02-27] MEDS: CEPHALEXIN MONOHYDRATE 500 MG CAPSULE PO SCH ×2 (14:07→16:28)
[2021-02-27] MEDS ORDERED: CEPHALEXIN MONOHYDRATE 500 MG CAPSULE PO ONE ×2 (14:08→16:29)
--- NOTE | 2021-02-27 14:36 | NUR ---
Nikki (psych lock technician) called and will be here in an hour.
[2021-02-27] MEDS ORDERED: OLANZAPINE 5 MG TABLET ONE (16:29)
[2021-02-27] MEDS ORDERED: OLANZAPINE 10 MG VIAL IM ONE (16:30)
--- NOTE | 2021-02-27 17:17 | NUR ---
CALLED [facility] FOR TRANSPORT TO [facility]. ETA 30-45 MINUTES.
--- NOTE | 2021-02-27 18:01 | NUR ---
Patient discharged to nursing facility in stable condition. Written and verbal after care instructions given. Patient verbalizes understanding of instruction. The patient left ER in stable condition via arranged transpo.
[2021-02-27 18:02] VITALS: BP 126/75
== END 2021-02-27 18:03 ==
LOC: ER 12:13 → EDBD 12:13 → ER 18:03
DX: R45.1 Restlessness and agitation (principal); N39.0 Urinary tract infection, site not specified; D64.9 Anemia, unspecified; S06.6X9S Traumatic subarachnoid hemorrhage with loss of consciousness of unspecified duration, sequela; R40.2212 Coma scale, best verbal response, none, at arrival to emergency department; R40.2362 Coma scale, best motor response, obeys commands, at arrival to emergency department; R40.2142 Coma scale, eyes open, spontaneous, at arrival to emergency department; X58.XXXS Exposure to other specified factors, sequela; G40.909 Epilepsy, unspecified, not intractable, without status epilepticus; K21.9 Gastro-esophageal reflux disease without esophagitis; Z79.899 Other long term (current) drug therapy; Z20.822 Contact with and (suspected) exposure to COVID-19
CPT/HCPCS: 36415; 80048; 80076; 80299; 80307; 80320; 81001; 85025; 87077; 87086; 87186; 87426; 96372; 99284; C9803; G0480